=== PATIENT | male | born 1990 | race Asian ===

== ENCOUNTER 2019-09-27 21:14 | Emergency (ER) ==
[~2019-09-27] VITALS: Ht 175.3 cm; Wt 89.4 kg
[2019-09-27 21:16] VITALS: BP 119/71
--- NOTE | 2019-09-27 21:33 | NUR ---
SOB SINCE YESTERDAY. STATES "FLU LIKE SYMPTOMS" SINCE YESTERDAY. FEVER, COUGH, CHEST PAIN WITH COUGHING/BREATHING
[2019-09-27] MEDS ORDERED: ACETAMINOPHEN 325 MG TABLET ONE (21:43)
[2019-09-27] MEDS ORDERED: ACETAMINOPHEN 325 MG TABLET PO ONE (22:00)
[2019-09-27 22:04] LABS: RAPID INFLUENZA A Negative (Negative); RAPID INFLUENZA B POSITIVE (Negative)
[2019-09-27] MEDS ORDERED: OSELTAMIVIR 75 MG CAPSULE ONE (22:27)
--- NOTE | 2019-09-27 22:28 | NUR ---
pt medicated per emar. Patient/Caregiver given discharge instructions and they have confirmed that they understand the instructions. Patient ambulatory with steady gait.
[2019-09-27] MEDS ORDERED: OSELTAMIVIR 75 MG CAPSULE PO ONE (22:30)
== END 2019-09-27 22:30 | disposition home or self-care (01) ==
LOC: ED 22:00
DX: J10.1 Influenza due to other identified influenza virus with other respiratory manifestations (principal); Z72.89 Other problems related to lifestyle
CPT/HCPCS: 71046; 87400; 93005; 99284